=== PATIENT | female | born 1950 | race Caucasian/White ===

== ENCOUNTER 2017-04-01 16:25 | Emergency (ER) | payer OTHER, MEDICARE ==
[~2017-04-01] VITALS: Ht 167.6 cm; Wt 65.8 kg
[2017-04-01 16:40] VITALS: BP 121/69
[2017-04-01] MEDS ORDERED: LIDOCAINE 1% / SOD BICARB 8.4% 20 ML VIAL. IJ ONE (17:00)
--- NOTE | 2017-04-01 17:28 | PHYS DOC ---
Past Medical History Past Medical History: Cancer Additional Past Medical Histor: PTSD, BREAST CA, PVC'S Past Surgical History: Hysterectomy, Tonsillectomy Additional Past Surgical Histo: BX MASTECTOMY Alcohol Use: Rarely Drug Use: None Adult General Chief Complaint Chief Complaint: LACERATION/AVULSION HPI HPI Patient is a 66 year old female who presents with right foot laceration. Patient states she got cut by a piece of glass that broke and cut her. Tetanus is up-to-date. Review of Systems Review of Systems Constitutional: Denies fever or chills [] Musculoskeletal: Denies back pain or joint pain [] Integument: Right foot laceration Neurologic: Denies headache, focal weakness or sensory changes [] Endocrine: Denies polyuria or polydipsia [] Current Medications Current Medications Current Medications Medications (Trade) Dose Ordered Sig/Dinah Start Time Stop Time Status Last Admin Dose Admin Lidocaine/Sodium Bicarbonate (Buffered Lidocaine 1%) 20 ml 1X ONCE 04/01/17 17:00 04/01/17 17:04 DC 04/01/17 17:00 20 ML Allergies Allergies Allergies Coded Allergies Type Severity Reaction Last Updated Verified No Known Drug Allergies 04/01/17 No Physical Exam Physical Exam Constitutional: Well developed, well nourished, no acute distress, non-toxic appearance. [] Skin: Right medial foot with a superficial laceration approximately 2 cm long, there is no tendon involvement, full range of motion to the right foot and toes. +2 right pedal pulse. Cap refill less than 2 seconds the right lower extremity. Sensation intact to the right lower extremity. Back: No tenderness, no CVA tenderness. [] Extremities: No tenderness, no cyanosis, no clubbing, ROM intact, no edema. [] Neurologic: Alert and oriented X 3, normal motor function, normal sensory function, no focal deficits noted. [] Psychologic: Affect normal, judgement normal, mood normal. [] Current Patient Data Vital Signs Vital Signs Date Time Temp Pulse Resp B/P (MAP) Pulse Ox O2 Delivery O2 Flow Rate FiO2 04/01/17 16:40 98.3 81 16 99 Room Air 98.3 EKG EKG [] Radiology/Procedures Radiology/Procedures Indication: Right foot laceration Procedure: The patient was placed in the appropriate position and anesthesia around the laceration was 1% buffered lidocaine. The area was explored for foreign objects, none was found, the area was cleaned with 100 ML of normal saline and Betadine. The laceration was closed with 5 interrupted sutures using 5. 0 Ethilon. The wound was covered with nonstick dressing. Total repaired wound length: Approximately 2 cm long Other Items: none The patient tolerated the procedure well Complications: none Course & Med Decision Making Course & Med Decision Making Pertinent Labs and Imaging studies reviewed. (See chart for details) Patient has right foot laceration which was closed as noted by me as noted in procedures. She was provided wound care instructions as well as return precautions. Tetanus is up-to-date. Dragon Disclaimer Dragon Disclaimer This electronic medical record was generated, in whole or in part, using a voice recognition dictation system. Departure Departure Impression: Primary Impression: Laceration of right foot Disposition: 01 HOME, SELF-CARE Condition: STABLE Referrals: UNKNOWN PCP NAME (PCP) Follow-up with your doctor or the emergency room in 7-10 days for suture removal Patient Instructions: Laceration Care, Adult Additional Instructions: You have right foot laceration, keep it clean and dry. You can shower. Apply Neosporin to the area twice a day. Monitor it for signs and symptoms of infection including increased redness increased drainage warmth or yellow or odorous drainage from the laceration site, come back to the ED or see your doctor if they occur. Follow-up with your doctor at or the emergency room in 7-10 days for suture removal. Problem Qualifiers Primary Impression: Laceration of right foot Encounter type: initial encounter Qualified Codes: S91.311A - Laceration without foreign body, right foot, initial encounter JEISON GUERRERO APRN Apr 01, 2017 17:28
== END 2017-04-01 17:41 | disposition home or self-care (01) ==
LOC: ER 16:25
DX: S91.311A Laceration without foreign body, right foot, initial encounter (principal); F43.10 Post-traumatic stress disorder, unspecified; I49.3 Ventricular premature depolarization; Z90.710 Acquired absence of both cervix and uterus; Z90.10 Acquired absence of unspecified breast and nipple; W25.XXXA Contact with sharp glass, initial encounter; Y93.89 Activity, other specified; Y92.89 Other specified places as the place of occurrence of the external cause; Y99.8 Other external cause status
CPT/HCPCS: 12001; 99283-25

== ENCOUNTER 2017-04-11 05:07 | Emergency (ER) | payer OTHER, MEDICARE ==
[~2017-04-11] VITALS: Ht 167.6 cm; Wt 65.8 kg
[2017-04-11 05:15] VITALS: BP 125/73
[2017-04-11 05:36] LABS: BASO % 1 % (0-3); EOS % 3 % (0-3); HEMATOCRIT 39.9 % (36.0-47.0); HEMOGLOBIN 13.8 g/dL (12.0-15.5); LYMPH # 1.5 x10^3/uL (1.0-4.8); LYMPH % 22 % (24-48); MEAN CORPUSCULAR HEMOGLOBIN 31 pg (25-35); MEAN CORPUSCULAR HGB CONC 35 g/dL (31-37); MEAN CORPUSCULAR VOLUME 91 fL (79-100); MONO % 11 % (0-9); NEUT % 63 % (31-73); PLATELET COUNT 261 x10^3/uL (140-400); RED CELL DISTRIBUTION WIDTH 14.2 % (11.5-14.5); WHITE BLOOD COUNT 6.7 x10^3/uL (4.0-11.0)
--- NOTE | 2017-04-11 05:47 | PHYS DOC ---
Past Medical History Past Medical History: Cancer Additional Past Medical Histor: PTSD, BREAST CA, PVC'S Past Surgical History: Hysterectomy, Tonsillectomy Additional Past Surgical Histo: BX MASTECTOMY Alcohol Use: Rarely Drug Use: None Adult General Chief Complaint Chief Complaint: Palpitations HPI HPI 66-year-old female presenting to the emergency department with palpitations this morning. She reports that she is been going through multiple very stressful events including moving and recent diagnosis of breast cancer over the past few years. She feels very anxious. She recently was discontinued on metoprolol and was concerned that maybe her heart rate was elevated because of this. She comes in for further evaluation. Currently she is feeling much better and her heart rate is back down. Onset today. Location chest. Duration intermittent. No alleviating or exacerbating factors present. Review of systems is negative for abdominal pain nausea vomiting fevers chills or chest pain. All other review of systems is negative unless otherwise noted in history of present illness. ED course: 66-year-old female presenting to the emergency department with palpitations at home. Upon arrival to the emergency department the patient's heart rate is in the mid 90s. She is feeling much better and has no complaints. Blood work sent. EKG obtained. EKG shows sinus rhythm with regular rate (89). Normal intervals. Normal axis. ST segments are congruent. Not suggestive of ACS. Reviewed by myself. Chest x-ray obtained. Patient was feeling much better and was subsequently discharged home to follow up with PCP for possible Holter monitor if her symptoms continued. Chest x-ray reviewed by myself shows no obvious infiltrate or pneumothorax. The patient was then discharged home in stable condition to follow up with their primary care physician over the next 2- 3 days. They were to return if their symptoms worsened or if they were concerned for any reason. [id number] discharge instructions and return precautions were given. Patient's questions were answered to their satisfaction. Patient is comfortable plan. Review of Systems Review of Systems SEE ABOVE. Allergies Allergies Allergies Coded Allergies Type Severity Reaction Last Updated Verified No Known Drug Allergies 04/01/17 No Physical Exam Physical Exam SEE ABOVE Constitutional: Well developed, well nourished, no acute distress, non-toxic appearance. [] HENT: Normocephalic, atraumatic, bilateral external ears normal, oropharynx moist, no oral exudates, nose normal. [] Eyes: PERRLA, EOMI, conjunctiva normal, no discharge. [] Neck: Normal range of motion, no tenderness, supple, no stridor. [] Cardiovascular:Heart rate regular rhythm, no murmur [] Lungs & Thorax: Bilateral breath sounds clear to auscultation [] Abdomen: Bowel sounds normal, soft, no tenderness, no masses, no pulsatile masses. [] Skin: Warm, dry, no erythema, no rash. [] Back: No tenderness, no CVA tenderness. [] Extremities: No tenderness, no cyanosis, no clubbing, ROM intact, no edema. [] Neurologic: Alert and oriented X 3, normal motor function, normal sensory function, no focal deficits noted. [] Psychologic: Affect normal, judgement normal, mood normal. [] Current Patient Data Vital Signs Vital Signs Date Time Temp Pulse Resp B/P (MAP) Pulse Ox O2 Delivery O2 Flow Rate FiO2 04/11/17 05:15 97.8 101 26 125/73 (90) 100 Room Air 97.8 Lab Values Laboratory Tests Test 04/11/17 05:21 04/11/17 05:55 White Blood Count 6.7 x10^3/uL (4.0-11.0) Red Blood Count 4.40 x10^6/uL (3.50-5.40) Hemoglobin 13.8 g/dL (12.0-15.5) Hematocrit 39.9 % (36.0-47.0) Mean Corpuscular Volume 91 fL (79-100) Mean Corpuscular Hemoglobin 31 pg (25-35) Mean Corpuscular Hemoglobin Concent 35 g/dL (31-37) Red Cell Distribution Width 14.2 % (11.5-14.5) Platelet Count 261 x10^3/uL (140-400) Neutrophils (%) (Auto) 63 % (31-73) Lymphocytes (%) (Auto) 22 % (24-48) L Monocytes (%) (Auto) 11 % (0-9) H Eosinophils (%) (Auto) 3 % (0-3) Basophils (%) (Auto) 1 % (0-3) Neutrophils # (Auto) 4.2 x10^3uL (1.8-7.7) Lymphocytes # (Auto) 1.5 x10^3/uL (1.0-4.8) Monocytes # (Auto) 0.7 x10^3/uL (0.0-1.1) Eosinophils # (Auto) 0.2 x10^3/uL (0.0-0.7) Basophils # (Auto) 0.0 x10^3/uL (0.0-0.2) Sodium Level 140 mmol/L (136-145) Potassium Level 3.6 mmol/L (3.5-5.1) Chloride Level 103 mmol/L (98-107) Carbon Dioxide Level 27 mmol/L (21-32) Anion Gap 10 (6-14) Blood Urea Nitrogen 19 mg/dL (7-20) Creatinine 0.9 mg/dL (0.6-1.0) Estimated GFR (Cockcroft-Gault) 63.0 Glucose Level 95 mg/dL (70-99) Calcium Level 9.5 mg/dL (8.5-10.1) Total Bilirubin 0.3 mg/dL (0.2-1.0) Direct Bilirubin 0.1 mg/dL (0.0-0.2) Aspartate Amino Transferase (AST) 18 U/L (15-37) Alanine Aminotransferase (ALT) 25 U/L (14-59) Alkaline Phosphatase 92 U/L (46-116) Troponin I Quantitative < 0.017 ng/mL (0.000-0.055) SX-Vdf-Q-Type Natriuretic Peptide 45 pg/mL (0-124) Total Protein 7.2 g/dL (6.4-8.2) Albumin 3.5 g/dL (3.4-5.0) Lipase 160 U/L (73-393) Laboratory Tests 04/11/17 05:21 Laboratory Tests 04/11/17 05:55 EKG EKG [] Radiology/Procedures Radiology/Procedures [] Course & Med Decision Making Course & Med Decision Making Pertinent Labs and Imaging studies reviewed. (See chart for details) [] Dragon Disclaimer Dragon Disclaimer This electronic medical record was generated, in whole or in part, using a voice recognition dictation system. Departure Departure Impression: Primary Impression: Palpitations Disposition: HOME, SELF-CARE Condition: STABLE Referrals: UNKNOWN PCP NAME (PCP) MORENA NATHAN MD Patient Instructions: Palpitations Additional Instructions: Thank you for allowing us to participate in your care today. Followup with your primary care physician in 3 days if your symptoms do not improve. Call your Primary Doctor tomorrow and inform them of your visit today. If you do not have a primary care provider you can ask for a list of our primary care providers. Return to the emergency department you have any new or concerning findings. This should be evaluated by the primary care physician and any necessary consulting services for continued management within a few days after discharge. Return to emergency room if you have any new or concerning symptoms including but not limited to fever, chills, nausea, vomiting, intractable pain, any new rashes, chest pain, shortness of air, uncontrolled bleeding, difficulty breathing, and/or vision loss. JACKIE BEEBE MD Apr 11, 2017 05:47
[2017-04-11 06:16] LABS: CALCIUM 9.5 mg/dL (8.5-10.1); CREATININE 0.9 mg/dL (0.6-1.0); POTASSIUM 3.6 mmol/L (3.5-5.1)
--- NOTE | 2017-04-11 06:16 | EKG ---
[facility] [address] [place] [address] Test Date: 2017-04-11 Test Time: 05:18:59 Pat Name: KAREN MERCADO Department: Room: Gender: F [employer]sembler: : 1950 Requested By: JACKIE BEEBE Order Number: [id number] Reading MD: Radha Graham Measurements Intervals [place] Rate: 89 P: 55 DE: 170 QRS: 42 QRSD: 86 T: 53 QT: 366 QTc: 452 Interpretive Statements SINUS RHYTHM LEFT ATRIAL ABNORMALITY ABNORMAL ECG RI6.01 No previous ECG available for comparison Electronically Signed On 04-15-2017 15:15:24 CDT by Radha Graham
[2017-04-11 06:25] LABS: ALBUMIN 3.5 g/dL (3.4-5.0); DIRECT BILIRUBIN 0.1 mg/dL (0.0-0.2); TOTAL BILIRUBIN 0.3 mg/dL (0.2-1.0); TOTAL PROTEIN 7.2 g/dL (6.4-8.2)
--- NOTE | 2017-04-11 07:15 | RAD ---
Portable chest, 04/11/2017: History: Chest pain The heart size and pulmonary vascularity are normal. No pulmonary infiltrates are seen. There is no evidence of pleural fluid. Surgical clips are present in the right axillary region. IMPRESSION: No acute cardiopulmonary abnormality is detected.
== END 2017-04-11 06:32 | disposition home or self-care (01) ==
LOC: ER 05:07
DX: R00.2 Palpitations (principal); F43.10 Post-traumatic stress disorder, unspecified
CPT/HCPCS: 36415; 71010; 80048; 80076; 83690; 83880; 84484; 85027; 93005; 99285-25